=== PATIENT | male | born 1965 | race Caucasian/White ===

== ENCOUNTER → 2018-04-22 | Outpatient (REF) | payer OTHER ==
[~2018-04-22] MED LIST: ACET-2031 PO; ASPI-1471 PO; ASPI81TA94 PO; ATOR10TA24 PO; ATOR20TA22 PO; ATOR40TA69 PO; CETI10CA8 PO; FLU60SYR36 IM; GLUC100026 PO; MAGN250T34 PO; NAPR220C12 PO; OMEP-218 PO; TRIA10.8
[2018-04-22 13:51] LABS: PLATELET COUNT, AUTOMATED 205 K/uL (150-450)
== END ==
LOC: ZZSTITCHES 13:27
PROVIDERS: ATTEND Physician Assistant
DX: L03.114 Cellulitis of left upper limb (principal); K12.2 Cellulitis and abscess of mouth
CPT/HCPCS: 85025

== ENCOUNTER → 2018-04-24 | Outpatient (REF) | payer OTHER | LOC: ZZSENDIN 18:06 | PROVIDERS: ATTEND Physician Assistant | DX: L03.114 Cellulitis of left upper limb (principal) | CPT/HCPCS: 87070 ==